=== PATIENT | female | born 1950 | race African-American/Black ===

== ENCOUNTER 2020-03-20 17:45 | Observation (INO) ==
[2020-03-20 21:34] LABS: Basophils % 0.5 % (0.0-0.8); Eosinophils # 0.4 10*3/uL (0.0-0.87); Eosinophils % 5.2 % (0.00-10.9); Hematocrit 30.6 VOL% (35.7-47.0); Hemoglobin 8.9 GM/DL (12.0-16.0); Immature Granulocytes % 0.3 %; Immature Granulocytes Absolute 0.02 #; Lymphocytes # 1.8 10*3/uL (1.4-4.0); Lymphocytes % 25.1 % (21.3-54.2); Mean Corpuscular HGB Conc 29.1 GM/DL (32-36); Mean Corpuscular Volume 80.7 FL (87-102); Mean Platelet Volume 11.3 FL (9.6-12.0); Monocytes % 6.5 % (1.7-12.7); Neutrophils % 62.4 % (38.7-73.9); Platelet Count 249 T/CUMM (130-400); Red Blood Count 3.79 MC/CUMM (3.8-5.5); Red Cell Distribution Width 16.4 % (9.3-17.3); White Blood Count 7.3 T/CUMM (4-12)
[2020-03-20 21:40] LABS: Alanine Aminotransferase 13 U/L (13-56); Albumin 3.7 G/DL (3.4-5.0); Alkaline Phosphatase 68 U/L (45-117); Aspartate Amino Transferase 19 U/L (0-37); Bilirubin,Total < 0.39 MG/DL (0.2-1.0); Blood Urea Nitrogen 51 MG/DL (7-18); Calcium 9.9 MG/DL (8.5-10.1); Glucose 112 MG/DL (74-106); Osmolality,Calculated 291.5 MOS/KG (273-304); Total Protein 7.3 G/DL (6.4-8.3)
[2020-03-20 21:41] LABS: Estimated Glom Filtration Rate 0 ML/MIN
[2020-03-20] MEDS ORDERED: SODIUM CHLORIDE 0.9% 1,000 ML IV STA (22:58)
[2020-03-20] MEDS ORDERED: INSULIN REGULAR 10 UNIT, CALCIUM GLUCONATE 1,000 MG in DEXTROSE 10% 250 ML IV ONE ×2 (22:59→23:30)
[2020-03-20] MEDS ORDERED: VANCOMYCIN INJ 1,000 MG in SODIUM CHLORIDE 0.9% 250 ML IV STA (23:00)
[2020-03-20] MEDS ORDERED: CALCIUM GLUCONATE 1,000 MG in SODIUM CHLORIDE 0.9% 100 ML IV ONE ×2 (23:21→23:30)
[2020-03-20] MEDS ORDERED: SODIUM CHLORIDE 0.9% 1,000 ML IV SCH (23:45)
[2020-03-20] MEDS ORDERED: DEXTROSE 50% 25 GM/50 ML VIAL IV PRN (23:49)
[2020-03-20] MEDS ORDERED: GLUCAGON 1 MG VIAL IM PRN (23:49)
[2020-03-20] MEDS ORDERED: ONDANSETRON 4 MG/2 ML VIAL IV PRN (23:49)
[2020-03-21] MEDS ORDERED: cefTRIAXone 1,000 MG VIAL ONE (02:50)
[2020-03-21] MEDS: cefTRIAXone 2,000 MG in SYRINGE 1 EACH IV SCH (02:55)
[2020-03-21] MEDS ORDERED: CALCIUM GLUCONATE 1,000 MG in SODIUM CHLORIDE 0.9% 100 ML IV ONE (03:00)
[2020-03-21] MEDS ORDERED: CALCIUM GLUCONATE 1,000 MG/10 ML VIAL IV ONE (04:27)
[2020-03-21 08:08] LABS: Basophils # 0.1 10*3/uL (0.0-0.2); Basophils % 0.9 % (0.0-0.8); Eosinophils # 0.5 10*3/uL (0.0-0.87); Eosinophils % 8.8 % (0.00-10.9); Hematocrit 27.4 VOL% (35.7-47.0); Hemoglobin 8.1 GM/DL (12.0-16.0); Immature Granulocytes % 0.4 %; Immature Granulocytes Absolute 0.02 #; Lymphocytes # 1.8 10*3/uL (1.4-4.0); Lymphocytes % 31.1 % (21.3-54.2); Mean Corpuscular HGB Conc 29.6 GM/DL (32-36); Mean Corpuscular Volume 79.4 FL (87-102); Mean Platelet Volume 10.5 FL (9.6-12.0); Monocytes % 9.3 % (1.7-12.7); Neutrophils % 49.5 % (38.7-73.9); Platelet Count 275 T/CUMM (130-400); Red Blood Count 3.45 MC/CUMM (3.8-5.5); Red Cell Distribution Width 16.1 % (9.3-17.3); White Blood Count 5.7 T/CUMM (4-12)
[2020-03-21 08:29] LABS: Calcium 9.8 MG/DL (8.5-10.1); Osmolality,Calculated 287.4 MOS/KG (273-304)
[2020-03-21] MEDS ORDERED: SODIUM POLYSTYRENE SULFATE 15 GM/60 ML BOTTLE PO ONE (08:42)
[2020-03-21] MEDS: ENOXAPARIN 30 MG/0.3 ML SYRINGE SUBCUT SCH (09:25)
[2020-03-21] MEDS: PANTOPRAZOLE 40 MG TABLET PO SCH (09:25)
[2020-03-21] MEDS: allopurinoL 100 MG TABLET PO SCH ×2 (09:25→21:54)
[2020-03-21] MEDS: amLODIPine 10 MG TABLET PO SCH (09:25)
[2020-03-21] MEDS: INSULIN REGULAR 100 UNIT/ML SUBCUT SCH ×4 (09:26→21:54)
[2020-03-21] MEDS: SODIUM BICARB INJ 100 MEQ in SODIUM CHLORIDE 0.45% 1,000 ML IV SCH ×2 (11:04→20:36)
[2020-03-21] MEDS: SIMVASTATIN 10 MG TABLET PO SCH (21:54)
[2020-03-22] MEDS: metroNIDAZOLE INJ 500 MG in PREMIX 1 EACH IV SCH ×3 (01:15→15:52)
[2020-03-22] MEDS: cefTRIAXone 2,000 MG in SYRINGE 1 EACH IV SCH (04:36)
[2020-03-22] MEDS: SODIUM BICARB INJ 100 MEQ in SODIUM CHLORIDE 0.45% 1,000 ML IV SCH (06:05)
[2020-03-22 07:36] LABS: Basophils # 0.1 10*3/uL (0.0-0.2); Eosinophils # 0.4 10*3/uL (0.0-0.87); Eosinophils % 7.9 % (0.00-10.9); Hematocrit 26.7 VOL% (35.7-47.0); Hemoglobin 8.2 GM/DL (12.0-16.0); Immature Granulocytes % 0.2 %; Immature Granulocytes Absolute 0.01 #; Lymphocytes # 1.7 10*3/uL (1.4-4.0); Lymphocytes % 35.8 % (21.3-54.2); Mean Corpuscular HGB Conc 30.7 GM/DL (32-36); Mean Corpuscular Volume 75.4 FL (87-102); Monocytes % 10.3 % (1.7-12.7); Neutrophils % 44.8 % (38.7-73.9); Platelet Count 273 T/CUMM (130-400); Red Blood Count 3.54 MC/CUMM (3.8-5.5); Red Cell Distribution Width 14.9 % (9.3-17.3); White Blood Count 4.8 T/CUMM (4-12)
[2020-03-22 07:54] LABS: Calcium 9.7 MG/DL (8.5-10.1); Osmolality,Calculated 280.4 MOS/KG (273-304)
[2020-03-22] MEDS: amLODIPine 10 MG TABLET PO SCH (08:15)
[2020-03-22] MEDS: allopurinoL 100 MG TABLET PO SCH ×2 (08:16→20:56)
[2020-03-22] MEDS: PANTOPRAZOLE 40 MG TABLET PO SCH (08:16)
[2020-03-22] MEDS: INSULIN REGULAR 100 UNIT/ML SUBCUT SCH ×4 (08:16→20:56)
[2020-03-22] MEDS: ENOXAPARIN 30 MG/0.3 ML SYRINGE SUBCUT SCH (08:16)
[2020-03-22] MEDS: ENOXAPARIN 40 MG/0.4 ML SYRINGE SUBCUT SCH (08:39)
[2020-03-22] MEDS: SIMVASTATIN 10 MG TABLET PO SCH (20:56)
[2020-03-23] MEDS: metroNIDAZOLE INJ 500 MG in PREMIX 1 EACH IV SCH ×2 (03:10→10:14)
[2020-03-23] MEDS: SODIUM BICARB INJ 100 MEQ in SODIUM CHLORIDE 0.45% 1,000 ML IV SCH ×2 (03:11→09:33)
[2020-03-23] MEDS: cefTRIAXone 2,000 MG in SYRINGE 1 EACH IV SCH (05:34)
[2020-03-23 06:33] LABS: Calcium 9.1 MG/DL (8.5-10.1); Osmolality,Calculated 277.5 MOS/KG (273-304)
[2020-03-23] MEDS ORDERED: ENALAPRIL 2.5 MG/2 ML VIAL IV ONE (07:34)
[2020-03-23] MEDS: INSULIN REGULAR 100 UNIT/ML SUBCUT SCH ×2 (09:34→12:22)
[2020-03-23] MEDS: ENOXAPARIN 40 MG/0.4 ML SYRINGE SUBCUT SCH (09:36)
[2020-03-23] MEDS: amLODIPine 10 MG TABLET PO SCH (09:37)
[2020-03-23] MEDS: allopurinoL 100 MG TABLET PO SCH (09:37)
[2020-03-23] MEDS: PANTOPRAZOLE 40 MG TABLET PO SCH (09:37)
[2020-03-23 12:14] VITALS: BP 108/64
== END 2020-03-23 13:15 | disposition home health service (06) | DRG 603 ==
LOC: N.ED 17:45 → SUATTDRO 23:49 → INTOOBSV 23:49 → N.EDINP 23:49 → N.TELEN 03-21 01:13
PROVIDERS: ADMIT Internal Medicine; ATTEND Family Medicine

== ENCOUNTER 2020-12-24 20:16 | Observation (INO) ==
[2020-12-24] MEDS ORDERED: SODIUM CHLORIDE 0.9% 1,000 ML IV STA (21:20)
[2020-12-24] MEDS ORDERED: ACETAMINOPHEN 500 MG TABLET PO STA (21:20)
[2020-12-24] MEDS ORDERED: hydrALAZINE 20 MG/1 ML VIAL IV STA (21:25)
[2020-12-24 21:32] LABS: Basophils % 0.3 % (0.0-0.8); Eosinophils # 0.1 10*3/uL (0.0-0.87); Eosinophils % 1.2 % (0.00-10.9); Hematocrit 33.1 VOL% (35.7-47.0); Hemoglobin 9.9 GM/DL (12.0-16.0); Immature Granulocytes % 0.3 %; Immature Granulocytes Absolute 0.03 #; Lymphocytes # 0.6 10*3/uL (1.4-4.0); Mean Corpuscular HGB Conc 29.9 GM/DL (32-36); Mean Corpuscular Volume 80.1 FL (87-102); Mean Platelet Volume 11.7 FL (9.6-12.0); Monocytes % 4.6 % (1.7-12.7); Neutrophils % 87.6 % (38.7-73.9); Platelet Count 239 T/CUMM (130-400); Red Blood Count 4.13 MC/CUMM (3.8-5.5); Red Cell Distribution Width 15.4 % (9.3-17.3); White Blood Count 10.4 T/CUMM (4-12)
[2020-12-24 21:40] LABS: PT Patient Result 10.5 SECS (9.8-11.9)
[2020-12-24 21:45] LABS: Alanine Aminotransferase 15 U/L (13-56); Albumin 3.9 G/DL (3.4-5.0); Alkaline Phosphatase 106 U/L (45-117); Aspartate Amino Transferase 23 U/L (0-37); Bilirubin,Total < 0.39 MG/DL (0.2-1.0); Blood Urea Nitrogen 26 MG/DL (7-18); Carbon Dioxide 23 MMOL/L (21-32); Estimated Glom Filtration Rate 44 ML/MIN; Glucose 163 MG/DL (74-106); Potassium 4.7 MMOL/L (3.5-5.1); Sodium 136 MMOL/L (136-145); Total Protein 7.6 G/DL (5.0-7.5)
[2020-12-24 22:03] LABS: Bilirubin,Urine Negative (Negative); Blood, Urine Negative (Negative); Glucose,Urine (UA) Negative (Negative); Ketones,Urine Negative (Negative); Nitrite,Urine Negative (Negative); Protein,Urine Negative; RBC,Urine 1 /HPF (0-4); Squamous Epithelial Cell,Urine Occasional /HPF (0-10); Urine Appearance CLEAR (Clear); Urine Color Straw (Yellow); Urine Specific Gravity 1.011 (1.001-1.035); Urine Urobilinogen < 2.0 EU/DL (0.2-1.0); WBC,Urine <1 /HPF (0-6)
[2020-12-25 00:07] LABS: Barbiturates Screen,Urine Negative (Negative); Benzodiazepines Screen,Urine Negative (Negative); Cannabinoid Screen,Urine Negative (Negative); Opiate Screen,Urine Positive (Negative); Phencyclidine Screen,Urine Negative (Negative)
[2020-12-25] MEDS ORDERED: AZITHROMYCIN INJ 500 MG in SODIUM CHLORIDE 0.9% 250 ML IV STA (00:20)
[2020-12-25] MEDS ORDERED: ACETAMINOPHEN 325 MG TABLET PO PRN (00:28)
[2020-12-25] MEDS ORDERED: hydrALAZINE 20 MG/1 ML VIAL IV PRN (00:28)
[2020-12-25] MEDS ORDERED: BISACODYL 5 MG TABLET PO PRN (00:28)
[2020-12-25] MEDS ORDERED: DEXTROSE 50% 25 GM/50 ML VIAL IV PRN ×2 (00:28)
[2020-12-25] MEDS ORDERED: GLUCAGON 1 MG VIAL IM PRN ×2 (00:28)
[2020-12-25] MEDS ORDERED: NICOTINE 21 MG/24 HR PATCH TRANSDERM PRN (00:28)
[2020-12-25] MEDS ORDERED: ONDANSETRON 4 MG/2 ML VIAL IV PRN (00:28)
[2020-12-25] MEDS ORDERED: ZALEPLON 5 MG CAPSULE PO PRN (00:28)
[2020-12-25] MEDS ORDERED: guaiFENesin/DM ER 600-30 MG TABLET PO PRN (00:28)
[2020-12-25] MEDS ORDERED: diphenhydrAMINE CAP 25 MG CAPSULE PO PRN (00:28)
[2020-12-25] MEDS ORDERED: SIMETHICONE CHEW 125 MG TABLET PO PRN (00:28)
[2020-12-25] MEDS: ALBUTEROL/IPRATROPIUM 3 ML NEB RESP TX SCH ×4 (02:44→19:17)
[2020-12-25] MEDS ORDERED: LEVOFLOXACIN INJ 750 MG in PREMIX 1 EACH IV SCH (03:00)
[2020-12-25] MEDS: SODIUM CHLORIDE 0.9% 1,000 ML IV SCH ×3 (03:55→22:48)
[2020-12-25 05:37] LABS: Basophils % 0.3 % (0.0-0.8); Eosinophils # 0.1 10*3/uL (0.0-0.87); Eosinophils % 0.6 % (0.00-10.9); Hematocrit 30.2 VOL% (35.7-47.0); Hemoglobin 9.2 GM/DL (12.0-16.0); Immature Granulocytes % 0.3 %; Immature Granulocytes Absolute 0.03 #; Lymphocytes # 0.9 10*3/uL (1.4-4.0); Lymphocytes % 9.3 % (21.3-54.2); Mean Corpuscular HGB Conc 30.5 GM/DL (32-36); Mean Corpuscular Volume 78.4 FL (87-102); Mean Platelet Volume 11.2 FL (9.6-12.0); Monocytes % 7.7 % (1.7-12.7); Neutrophils % 81.8 % (38.7-73.9); Platelet Count 214 T/CUMM (130-400); Red Blood Count 3.85 MC/CUMM (3.8-5.5); Red Cell Distribution Width 14.9 % (9.3-17.3); White Blood Count 9.3 T/CUMM (4-12)
[2020-12-25 06:01] LABS: Calcium 9.1 MG/DL (8.5-10.1); Osmolality,Calculated 281.7 MOS/KG (273-304); Potassium 4.3 MMOL/L (3.5-5.1)
[2020-12-25] MEDS: HEPARIN 5,000 UNIT/1 ML VIAL SUBCUT SCH ×2 (08:58→21:25)
[2020-12-25] MEDS: INSULIN LISPRO 100 UNIT/ML SUBCUT SCH ×4 (08:59→22:25)
[2020-12-25] MEDS: PANTOPRAZOLE 40 MG TABLET PO SCH (08:59)
[2020-12-25] MEDS: METOPROLOL TARTRATE 25 MG TABLET PO SCH ×2 (12:04→21:26)
[2020-12-26] MEDS: ALBUTEROL/IPRATROPIUM 3 ML NEB RESP TX SCH ×3 (01:54→13:06)
[2020-12-26 05:35] LABS: Basophils % 0.4 % (0.0-0.8); Eosinophils # 0.3 10*3/uL (0.0-0.87); Eosinophils % 5.3 % (0.00-10.9); Hematocrit 30.1 VOL% (35.7-47.0); Immature Granulocytes % 0.2 %; Immature Granulocytes Absolute 0.01 #; Lymphocytes # 1.3 10*3/uL (1.4-4.0); Lymphocytes % 22.1 % (21.3-54.2); Mean Corpuscular HGB Conc 29.9 GM/DL (32-36); Mean Corpuscular Volume 78.4 FL (87-102); Monocytes % 11.5 % (1.7-12.7); Neutrophils % 60.5 % (38.7-73.9); Platelet Count 203 T/CUMM (130-400); Red Blood Count 3.84 MC/CUMM (3.8-5.5); Red Cell Distribution Width 15.2 % (9.3-17.3); White Blood Count 5.7 T/CUMM (4-12)
[2020-12-26 05:52] LABS: Calcium 9.4 MG/DL (8.5-10.1); Osmolality,Calculated 285.1 MOS/KG (273-304); Potassium 3.7 MMOL/L (3.5-5.1)
[2020-12-26] MEDS ORDERED: MAGNESIUM SULF RIDER 2 GM in PREMIX 1 EACH IV PRN (07:41)
[2020-12-26] MEDS ORDERED: MAGNESIUM SULF RIDER 4 GM in PREMIX 1 EACH IV PRN (07:41)
[2020-12-26 08:09] VITALS: BP 131/80
[2020-12-26] MEDS: INSULIN LISPRO 100 UNIT/ML SUBCUT SCH (08:39)
[2020-12-26] MEDS: PANTOPRAZOLE 40 MG TABLET PO SCH (08:40)
[2020-12-26] MEDS: HEPARIN 5,000 UNIT/1 ML VIAL SUBCUT SCH (08:40)
[2020-12-26] MEDS: METOPROLOL TARTRATE 25 MG TABLET PO SCH (08:41)
== END 2020-12-26 13:23 | disposition home or self-care (01) ==
LOC: EDUNIT# → EDBD → N.EDINP 20:16 → N.ED 20:16 → N.EDINP 12-25 03:01 → N.3E 12-25 03:39
PROVIDERS: ADMIT Internal Medicine; ATTEND Internal Medicine